=== PATIENT | male | born 1940 | race Caucasian/White ===

== ENCOUNTER → 2018-09-03 | Outpatient (CLI) | payer MEDICARE, OTHER ==
[~2018-09-03] MED LIST: ASPI325 PO; BENAML10/5 PO; CARV6.25 PO; CLOP75 PO; HYDACE5 PO; LISHYD1012 PO; LISHYD2025 PO; LORA1 PO; MULVITMIND PO; OLME20 PO
== END | disposition home or self-care (01) ==
LOC: LAB SHORT 11:35 → PLD 11:35
DX: C44.519 Basal cell carcinoma of skin of other part of trunk (principal)
CPT/HCPCS: 88305

== ENCOUNTER 2019-03-19 07:38 | Day surgery (SDC) | payer MEDICARE, OTHER ==
[~2019-03-19] VITALS: Ht 170.2 cm; Wt 84.3 kg
[~2019-03-19 07:38] MED LIST changes: +ACET500; +ATOR10; +Azor 10-40 MG1 EACH; +Cardura8 MG; +DIPATRL; +DULO60; +RIZATRIPTAN10 MG
--- NOTE | 2019-03-19 10:07 | NUR ---
03/19/19 1007 Stephanie Lucero (Jeanne 2ML SPOT INK USED FOR COLON POLYP AT 70CM.
== END 2019-03-19 10:40 | disposition home or self-care (01) ==
LOC: ORSCSDS 07:38
PROVIDERS: Surgery
PROC: 0DBL8ZX Excision of Transverse Colon, Via Natural or Artificial Opening Endoscopic, Diagnostic (ICD-10-PCS; principal; 2019-03-19 09:00)
PROC: 0DBM8ZX Excision of Descending Colon, Via Natural or Artificial Opening Endoscopic, Diagnostic (ICD-10-PCS; principal; 2019-03-19 09:00)
PROC: 0DBK8ZX Excision of Ascending Colon, Via Natural or Artificial Opening Endoscopic, Diagnostic (ICD-10-PCS; principal; 2019-03-19 09:00)
PROC: 3E0H8GC Introduction of Other Therapeutic Substance into Lower GI, Via Natural or Artificial Opening Endoscopic (ICD-10-PCS; principal; 2019-03-19 09:00)
DX: Z12.11 Encounter for screening for malignant neoplasm of colon (principal); D12.4 Benign neoplasm of descending colon; D12.2 Benign neoplasm of ascending colon; D12.3 Benign neoplasm of transverse colon; K57.30 Diverticulosis of large intestine without perforation or abscess without bleeding; I10 Essential (primary) hypertension; G47.33 Obstructive sleep apnea (adult) (pediatric); I25.2 Old myocardial infarction; Z79.899 Other long term (current) drug therapy
CPT/HCPCS: 88305; J0461; J1980; J2405; J2704; J7120

== ENCOUNTER → 2019-08-11 | Outpatient (CLI) | payer MEDICARE, OTHER | END | disposition home or self-care (01) | LOC: PLD 11:57 → LAB SHORT 11:57 | DX: D48.5 Neoplasm of uncertain behavior of skin (principal) | CPT/HCPCS: 88305 ==

== ENCOUNTER → 2020-08-16 | Outpatient (CLI) | payer MEDICARE, OTHER | END | disposition home or self-care (01) | LOC: PLD 08:54 → LAB SHORT 08:54 | DX: D48.5 Neoplasm of uncertain behavior of skin (principal) | CPT/HCPCS: 88305 ==

== ENCOUNTER → 2020-11-16 | Outpatient (CLI) | payer OTHER | LOC: LAB SHORT 11:18 → PLD 11:18 | DX: L98.0 Pyogenic granuloma (principal) | CPT/HCPCS: 88305 ==

== ENCOUNTER 2022-01-05 14:17 | Emergency (ER) | payer OTHER ==
[~2022-01-05] VITALS: Ht 167.6 cm; Wt 81.7 kg
[~2022-01-05 14:17] MED LIST changes: -DIPATRL; +LOMOTIL 2.5-0.1 EACH PO
[2022-01-09] MEDS ORDERED: OXYC5 PO (02:06)
[2022-01-09] MEDS ORDERED: DOCU100 PO (02:08)
[2022-01-09] MEDS ORDERED: ALERTNESS AID200 MG PO (02:10)
== END 2022-01-05 17:33 | disposition home or self-care (01) ==
LOC: ER 14:17
DX: T84.020A Dislocation of internal right hip prosthesis, initial encounter (principal); I10 Essential (primary) hypertension
CPT/HCPCS: 27266; 73501; 73502; 93971; 96374-59; 96375-59; 99284-25; J1170; J2405; J2704; J7030

== ENCOUNTER → 2022-09-03 | Outpatient (CLI) | payer OTHER ==
[~2022-09-03] MED LIST changes: +ALERTNESS AID200 MG PO; +DOCU100 PO; +OXYC5 PO
[2022-09-03 12:46] LABS: BASOPHILS ABSOLUTE AUTO 0.05 K/mm3 (0.00-0.23); BASOPHILS PERCENT AUTO 1 % (0-2); EOSINOPHILS ABSOLUTE AUTO 0.28 K/mm3 (0.00-0.68); EOSINOPHILS PERCENT AUTO 4 % (0-6); IMMATURE GRAN ABSOLUTE AUTO 0.01 K/mm3 (0.00-0.10); IMMATURE GRAN PERCENT AUTO 0 % (0-1); LYMPHOCYTES ABSOLUTE AUTO 1.94 K/mm3 (0.84-5.20); LYMPHOCYTES PERCENT AUTO 28 % (21-46); MONOCYTES PERCENT AUTO 10 % (4-13); Mean Corpuscular HGB 30.7 pg (26.0-34.0); Mean Corpuscular HGB Conc 33.3 g/dL (31.5-36.5); Mean Corpuscular Volume 92 fL (80-100); Mean Platelet Volume 9.7 fL (9.1-12.4); NEUTROPHILS ABSOLUTE AUTO 3.94 K/mm3 (1.96-9.15); NEUTROPHILS PERCENT AUTO 57 % (41-73); Platelet Count 235 K/mm3 (150-400); RDW Coefficient Variation 13.4 % (11.7-14.2); RDW Standard Deviation 45.3 fL (35.1-46.3); Red Blood Cell Count 4.56 M/mm3 (4.30-5.90); White Blood Cell Count 6.92 K/mm3 (4.00-11.30)
[2022-09-03 12:55] LABS: International Normalized Ratio 1.04; Prothrombin Time Results 10.9 Sec (9.7-11.5)
[2022-09-03 14:14] LABS: Albumin, Blood 3.8 g/dL (3.4-5.0); Albumin/Globulin Ratio 1.2 (0.8-1.8); Bilirubin, Total 0.6 mg/dL (0.1-1.0); Bun/Creatinine Ratio 20.6 (12.0-20.0); Calcium, Blood 9.1 mg/dL (8.5-10.1); Creatinine, Blood 0.78 mg/dL (0.60-1.20); D-Dimer, Quantitative 1.86 mg/L FEU (0.00-0.52); Globulin, Blood 3.3 g/dL (2.2-4.0); Potassium, Blood 4.1 mmol/L (3.5-5.5); Total Protein, Blood 7.1 g/dL (6.4-8.2)
== END | disposition home or self-care (01) ==
LOC: LAB 10:09 → LAB SHORT 10:09
PROVIDERS: Nurse Practitioner Family
DX: M79.605 Pain in left leg (principal); L08.9 Local infection of the skin and subcutaneous tissue, unspecified
CPT/HCPCS: 80053; 85025; 85379; 85610; 85730; 87070; 87077; 87186; 87205

== ENCOUNTER 2024-06-24 08:30 | Day surgery (SDC) | payer OTHER ==
[~2024-06-24] VITALS: Ht 167.6 cm; Wt 78.3 kg
[~2024-06-24 08:30] MED LIST changes: +LATA.005SO BOTHEYES; +Lactated Ringer's 1,000 ML IV ONE; +Lidocaine 1%-Epineph 1:100000 20 ML MDV ONE; +MULTIPLE VITAM1 EACH PO; +NARA2.5; +Oxybutynin Chlo10 MG PO; +PRED FORTE5 ML RIGHTEYE; +TIMO.5OPSO BOTHEYES; +TRAZ50 PO
[2024-06-24] MEDS ORDERED: Lactated Ringer's 1,000 ML IV ONE (09:00)
[2024-06-24] MEDS ORDERED: Midazolam HCl 1MG / ML 2ML Vial ONE (09:04)
[2024-06-24] MEDS ORDERED: propofoL 0 ML IV ONE (09:32)
--- NOTE | 2024-06-24 09:52 | NUR ---
06/24/24 0952 Alicia Sanz TIME OUT TAKEN AT 0944 TO VERIFY CORRECT PT, PROCEDURE, ALLERGIES AND LOCATION. PT ELECTED TO PROCEED WITH BLOCK PRIOR TO PROCEDURE. PT TOLERATED WELL, END AT 0948.
[2024-06-24] MEDS ORDERED: Esmolol HCL 10 MG/ML 10ML VIAL ONE (09:54)
[2024-06-24 10:48] VITALS: BP 166/84
== END 2024-06-24 11:20 | disposition home or self-care (01) ==
LOC: ORSCSDS 08:30
PROVIDERS: Orthopaedic Surgery
PROC: 01N54ZZ Release Median Nerve, Percutaneous Endoscopic Approach (ICD-10-PCS; principal; 2024-06-24 09:30)
DX: G56.03 Carpal tunnel syndrome, bilateral upper limbs (principal); I10 Essential (primary) hypertension; I25.10 Atherosclerotic heart disease of native coronary artery without angina pectoris; G47.33 Obstructive sleep apnea (adult) (pediatric); I25.2 Old myocardial infarction; Z86.73 Personal history of transient ischemic attack (TIA), and cerebral infarction without residual deficits; Z79.82 Long term (current) use of aspirin; Z79.899 Other long term (current) drug therapy; M54.2 Cervicalgia; R51.9 Headache, unspecified; R42 Dizziness and giddiness; Z88.8 Allergy status to other drugs, medicaments and biological substances
CPT/HCPCS: 70450; 72125; 99283-25; J2250; J2704; J7120

== ENCOUNTER → 2024-10-12 | Outpatient (CLI) | payer OTHER ==
[~2024-10-12] MED LIST changes: -Lactated Ringer's 1,000 ML IV ONE; -Lidocaine 1%-Epineph 1:100000 20 ML MDV ONE
== END | disposition home or self-care (01) ==
LOC: LAB SHORT 18:22 → LAB 18:22
DX: R10.9 Unspecified abdominal pain (principal); R19.7 Diarrhea, unspecified; K59.00 Constipation, unspecified
CPT/HCPCS: 87015; 87045; 87046; 87205; 87899

== ENCOUNTER 2024-11-26 02:09 | Day surgery (SDC) | payer OTHER ==
[2024-11-26] MEDS ORDERED: Lidocaine HCl 4% Cream 5 GM ONE (13:51)
== END 2024-11-26 23:00 | disposition home or self-care (01) ==
LOC: WOUND 02:09
DX: E11.621 Type 2 diabetes mellitus with foot ulcer (principal); L97.412 Non-pressure chronic ulcer of right heel and midfoot with fat layer exposed; I87.2 Venous insufficiency (chronic) (peripheral); E11.51 Type 2 diabetes mellitus with diabetic peripheral angiopathy without gangrene; G47.30 Sleep apnea, unspecified; I10 Essential (primary) hypertension
CPT/HCPCS: A6213; A9270; G0463

== ENCOUNTER → 2024-12-03 | Day surgery (SDC) | payer OTHER ==
[~2024-12-03] MED LIST changes: +Lidocaine HCl 4% Cream 5 GM ONE
== END ==
LOC: WOUND 05:00
DX: E11.621 Type 2 diabetes mellitus with foot ulcer (principal); L97.512 Non-pressure chronic ulcer of other part of right foot with fat layer exposed
CPT/HCPCS: A6213; A9270

== ENCOUNTER 2024-12-10 01:37 | Day surgery (SDC) | payer OTHER ==
[~2024-12-10 01:37] MED LIST changes: -Lidocaine HCl 4% Cream 5 GM ONE
[2024-12-10] MEDS ORDERED: Lidocaine HCl 4% Cream 5 GM ONE (11:12)
== END 2024-12-10 23:00 | disposition home or self-care (01) ==
LOC: WOUND 01:37
DX: E11.621 Type 2 diabetes mellitus with foot ulcer (principal); L97.512 Non-pressure chronic ulcer of other part of right foot with fat layer exposed
CPT/HCPCS: A6213; A9270

== ENCOUNTER 2024-12-17 04:11 | Day surgery (SDC) | payer OTHER ==
[2024-12-17] MEDS ORDERED: Lidocaine HCl 4% Cream 5 GM ONE (11:00)
== END 2024-12-17 23:00 | disposition home or self-care (01) ==
LOC: WOUND 04:11
DX: E11.622 Type 2 diabetes mellitus with other skin ulcer (principal); L97.812 Non-pressure chronic ulcer of other part of right lower leg with fat layer exposed
CPT/HCPCS: A6213; A9270

== ENCOUNTER 2024-12-31 02:29 | Day surgery (SDC) | payer OTHER ==
[2024-12-31] MEDS ORDERED: Lidocaine HCl 4% Cream 5 GM ONE (10:59)
== END 2024-12-31 23:00 | disposition home or self-care (01) ==
LOC: WOUND 02:29
DX: E11.621 Type 2 diabetes mellitus with foot ulcer (principal); L97.512 Non-pressure chronic ulcer of other part of right foot with fat layer exposed; I87.2 Venous insufficiency (chronic) (peripheral)
CPT/HCPCS: A6213; A9270

== ENCOUNTER 2025-01-07 00:55 | Day surgery (SDC) | payer OTHER ==
[2025-01-07] MEDS ORDERED: Lidocaine HCl 4% Cream 5 GM ONE (11:06)
== END 2025-01-07 23:00 | disposition home or self-care (01) ==
LOC: WOUND 00:55
DX: E11.622 Type 2 diabetes mellitus with other skin ulcer (principal); L97.812 Non-pressure chronic ulcer of other part of right lower leg with fat layer exposed
CPT/HCPCS: A6213; A9270

== ENCOUNTER 2025-01-14 02:18 | Day surgery (SDC) | payer OTHER ==
[2025-01-14] MEDS ORDERED: Lidocaine HCl 4% Cream 5 GM ONE (10:56)
== END 2025-01-14 23:00 | disposition home or self-care (01) ==
LOC: WOUND 02:18
DX: E11.622 Type 2 diabetes mellitus with other skin ulcer (principal); L97.812 Non-pressure chronic ulcer of other part of right lower leg with fat layer exposed
CPT/HCPCS: A6213; A9270

== ENCOUNTER 2025-01-21 04:06 | Day surgery (SDC) | payer OTHER ==
[2025-01-21] MEDS ORDERED: Lidocaine HCl 4% Cream 5 GM ONE (10:49)
== END 2025-01-21 23:00 | disposition home or self-care (01) ==
LOC: WOUND 04:06
DX: E11.621 Type 2 diabetes mellitus with foot ulcer (principal); L97.512 Non-pressure chronic ulcer of other part of right foot with fat layer exposed
CPT/HCPCS: A6213; A9270

== ENCOUNTER 2025-01-28 00:54 | Day surgery (SDC) | payer OTHER ==
[2025-01-28] MEDS ORDERED: Lidocaine HCl 4% Cream 5 GM ONE (11:02)
== END 2025-01-28 23:00 | disposition home or self-care (01) ==
LOC: WOUND 00:54
DX: L97.412 Non-pressure chronic ulcer of right heel and midfoot with fat layer exposed (principal)
CPT/HCPCS: A6213; A9270

== ENCOUNTER 2025-02-04 02:09 | Day surgery (SDC) | payer OTHER ==
[2025-02-04] MEDS ORDERED: Lidocaine HCl 4% Cream 5 GM ONE (11:33)
== END 2025-02-04 23:00 | disposition home or self-care (01) ==
LOC: WOUND 02:09
DX: E11.621 Type 2 diabetes mellitus with foot ulcer (principal); L97.412 Non-pressure chronic ulcer of right heel and midfoot with fat layer exposed; E11.622 Type 2 diabetes mellitus with other skin ulcer; L97.812 Non-pressure chronic ulcer of other part of right lower leg with fat layer exposed
CPT/HCPCS: A6213; A9270

== ENCOUNTER 2025-02-18 04:19 | Day surgery (SDC) | payer OTHER ==
[2025-02-18] MEDS ORDERED: Lidocaine HCl 4% Cream 5 GM ONE (15:31)
== END 2025-02-18 23:00 | disposition home or self-care (01) ==
LOC: WOUND 04:19
DX: E11.621 Type 2 diabetes mellitus with foot ulcer (principal); L97.412 Non-pressure chronic ulcer of right heel and midfoot with fat layer exposed
CPT/HCPCS: A9270; G0463

== ENCOUNTER 2025-02-25 01:58 | Day surgery (SDC) | payer OTHER ==
[2025-02-25] MEDS ORDERED: Lidocaine HCl 4% Cream 5 GM ONE (11:18)
== END 2025-02-25 23:00 | disposition home or self-care (01) ==
LOC: WOUND 01:58
DX: L97.512 Non-pressure chronic ulcer of other part of right foot with fat layer exposed (principal); E11.622 Type 2 diabetes mellitus with other skin ulcer
CPT/HCPCS: A9270; G0463

== ENCOUNTER 2025-03-04 02:31 | Day surgery (SDC) | payer OTHER ==
[2025-03-04] MEDS ORDERED: Lidocaine HCl 4% Cream 5 GM ONE (11:07)
== END 2025-03-04 23:00 | disposition home or self-care (01) ==
LOC: WOUND 02:31
DX: L97.512 Non-pressure chronic ulcer of other part of right foot with fat layer exposed (principal)
CPT/HCPCS: A9270; G0463

== ENCOUNTER 2025-03-19 05:06 | Day surgery (SDC) | payer OTHER | END 2025-03-19 23:00 | disposition home or self-care (01) | LOC: WOUND 05:06 | DX: E11.622 Type 2 diabetes mellitus with other skin ulcer (principal); L97.412 Non-pressure chronic ulcer of right heel and midfoot with fat layer exposed | CPT/HCPCS: G0463 ==

== ENCOUNTER 2025-04-01 01:42 | Day surgery (SDC) | payer OTHER ==
[2025-04-01] MEDS ORDERED: Lidocaine HCl 4% Cream 5 GM ONE (11:03)
== END 2025-04-01 23:00 | disposition home or self-care (01) ==
LOC: WOUND 01:42
DX: L97.512 Non-pressure chronic ulcer of other part of right foot with fat layer exposed (principal); L97.412 Non-pressure chronic ulcer of right heel and midfoot with fat layer exposed
CPT/HCPCS: A9270

== ENCOUNTER 2025-04-22 00:47 | Day surgery (SDC) | payer OTHER ==
[2025-04-22] MEDS ORDERED: Lidocaine HCl 4% Cream 5 GM ONE (11:16)
== END 2025-04-22 23:00 | disposition home or self-care (01) ==
LOC: WOUND 00:47
DX: L97.412 Non-pressure chronic ulcer of right heel and midfoot with fat layer exposed (principal); L97.512 Non-pressure chronic ulcer of other part of right foot with fat layer exposed; E11.51 Type 2 diabetes mellitus with diabetic peripheral angiopathy without gangrene; I87.2 Venous insufficiency (chronic) (peripheral)
CPT/HCPCS: A6213; A9270

== ENCOUNTER 2025-05-27 10:56 | Day surgery (SDC) | payer OTHER | END 2025-05-27 23:00 | disposition home or self-care (01) | LOC: WOUND 10:56 | DX: E11.622 Type 2 diabetes mellitus with other skin ulcer (principal); L97.412 Non-pressure chronic ulcer of right heel and midfoot with fat layer exposed; E11.51 Type 2 diabetes mellitus with diabetic peripheral angiopathy without gangrene; I87.2 Venous insufficiency (chronic) (peripheral) | CPT/HCPCS: A6213 ==

== ENCOUNTER 2025-06-17 01:49 | Day surgery (SDC) | payer OTHER ==
[2025-06-17] MEDS ORDERED: Lidocaine HCl 4% Cream 5 GM ONE (11:09)
[2025-06-18] MEDS ORDERED: LOSA25 PO (21:01)
== END 2025-06-17 23:00 | disposition home or self-care (01) ==
LOC: WOUND 01:49
DX: E11.621 Type 2 diabetes mellitus with foot ulcer (principal); L97.512 Non-pressure chronic ulcer of other part of right foot with fat layer exposed; L97.412 Non-pressure chronic ulcer of right heel and midfoot with fat layer exposed; E11.51 Type 2 diabetes mellitus with diabetic peripheral angiopathy without gangrene; I87.2 Venous insufficiency (chronic) (peripheral)
CPT/HCPCS: A9270

== ENCOUNTER 2025-06-18 11:46 | Inpatient (IN) | payer OTHER ==
[~2025-06-18] VITALS: Ht 172.7 cm; Wt 84.3 kg
[~2025-06-18 11:46] MED LIST changes: -ATOR10; +ATOR10 PO; -DULO60; +DULO60 PO
[2025-06-18] MEDS ORDERED: NS 500 ML IV SCH ×2 (12:25→14:00)
[2025-06-18 12:40] LABS: BASOPHILS ABSOLUTE AUTO 0.05 K/mm3 (0.00-0.23); BASOPHILS PERCENT AUTO 0 % (0-2); EOSINOPHILS ABSOLUTE AUTO 0.21 K/mm3 (0.00-0.68); EOSINOPHILS PERCENT AUTO 2 % (0-6); Hematocrit 40.6 % (37.0-53.0); Hemoglobin 13.7 g/dL (13.5-17.5); IMMATURE GRAN ABSOLUTE AUTO 0.05 K/mm3 (0.00-0.10); IMMATURE GRAN PERCENT AUTO 0 % (0-1); LYMPHOCYTES ABSOLUTE AUTO 0.66 K/mm3 (0.84-5.20); LYMPHOCYTES PERCENT AUTO 5 % (21-46); MONOCYTES ABSOLUTE AUTO 0.63 K/mm3 (0.16-1.47); MONOCYTES PERCENT AUTO 5 % (4-13); Mean Corpuscular HGB Conc 33.7 g/dL (31.5-36.5); Mean Corpuscular Volume 96 fL (80-100); NEUTROPHILS ABSOLUTE AUTO 11.32 K/mm3 (1.96-9.15); NEUTROPHILS PERCENT AUTO 88 % (41-73); NRBC ABSOLUTE 0.00 K/mm3 (0.00-0.02); NRBC Auto 0.0 /100 WBC (0.0-0.2); Platelet Count 208 K/mm3 (150-400); RDW Coefficient Variation 13.0 % (11.7-14.2); RDW Standard Deviation 46.2 fL (35.1-46.3)
[2025-06-18 12:51] LABS: C-REACTIVE PROTEIN, EXT RANGE 1.61 mg/dL (0.000-0.300); Magnesium, Blood 1.9 mg/dL (1.6-2.4)
[2025-06-18 12:53] LABS: Alanine Aminotransfer (ALT/SGP 34.0 U/L (12-78); Albumin, Blood 3.7 g/dL (3.4-5.0); Albumin/Globulin Ratio 1.0 (0.8-1.8); Anion Gap 6.0 mmol/L (3-11); Aspartate Aminotrans (AST/SGOT 25.0 U/L (12-37); Bilirubin, Total 1.3 mg/dL (0.1-1.0); Blood Urea Nitrogen 21.0 mg/dL (8-24); CO2, Blood 33.0 mmol/L (21-32); Calcium, Blood 8.9 mg/dL (8.5-10.1); Chloride, Blood 102.0 mmol/L (98-108); Creatinine, Blood 0.77 mg/dL (0.60-1.20); Globulin, Blood 3.6 g/dL (2.2-4.0); Glucose, Blood 107.0 mg/dL (70-99); Potassium, Blood 3.5 mmol/L (3.5-5.5); Sodium, Blood 137.0 mmol/L (136-145); Total Protein, Blood 7.3 g/dL (6.4-8.2)
[2025-06-18 13:56] LABS: Influenza A, PCR NEGATIVE (NEGATIVE); Influenza B, PCR NEGATIVE (NEGATIVE); Resp Syncytial Virus, PCR NEGATIVE (NEGATIVE); SARS-Cov-2 (COVID-19) PCR, MMC NEGATIVE (NEGATIVE)
[2025-06-18] MEDS ORDERED: CeFAZolin Sodium 1,000 MG in NS 50 ML IV ONE (14:00)
[2025-06-18 14:28] LABS: Source, Urine Clean Catch
[2025-06-18 14:38] LABS: Bilirubin, Urine Neg (Neg); Color, Urine Yellow (P-Yellow); Glucose Qualitative, Urine Neg (Neg); Ketones, Urine Neg (Neg); Leukocyte Esterase, Urine Neg (Neg); Protein, Urine 2+ (Neg); Specific Gravity, Urine 1.010 (1.003-1.022); Urobilinogen, Urine NORM (Normal)
[2025-06-18 14:49] LABS: White Blood Cells, Urine 0-2 /hpf (0-5)
[2025-06-18] MEDS ORDERED: Albuterol 2.5 MG/3 ML VIAL INH ONE (17:55)
[2025-06-18] MEDS ORDERED: CeFAZolin Sodium 2,000 MG in NS 100 ML IV SCH (18:00)
[2025-06-18 18:39] VITALS: BP 138/67
[2025-06-18 18:57] VITALS: BP 133/63
--- NOTE | 2025-06-18 19:57 | NUR ---
SHIFT SUMMARY/ADMIT NOTE- PT ARRIVED ON MEDICAL FLOOR AT 1845. QUICK ADMIT AND SCREENING WAS COMPLETED. PT CAN ANSWER SHORT QUESTIONS, BUT LOOSES TRACK OF THE CONVERSATION AND STARTS TALKING ABOUT A TOTALLY DIFFERENT SUBJECT, AFTER 3-5 WORDS. PER FAMILY HE IS NORMALLY "SHARP A TACK". FAMLY WENT HOME TO GET THE PT MEDICATION BOTTLES AND HIS CPAP. ORDER RECIEVED FOR HOME CPAP. THE FAMILY STATED THE PT DOES NOT HAVE ANY O2 AT HOME, HIS CPAP SETTING IS 8. SPOKE TO RT THEY ARE AWARE THE HOME CPAP IS ON ITS WAY HERE, NIGHT RN AWARE TO CALL RT WHEN THE FAMILY ARRIVES WITH THE CPAP. PT IN BED, DRESSING TO THE RLE IS C/D/I. NO PHOTOS TAKEN THE PT HAD THE DRESSING CHANGED THIS MORNING. PT IN BED, CALL LIGHT IN RECH FAMILY AT THE BEDSIDE. NO S&S OF DISTRESS NOTED. BEDSIDE REPORT COMPLETED WITH NIGHT RN. PT ON 3L O2 VIA NC, LAST VEWS SCORE WAS 4. NIGHT RN IS AWARE INCREASED FREQ OF VITALS TO Q2 X3.
[2025-06-18] MEDS ORDERED: NS 1,000 ML IV SCH (20:00)
[2025-06-18 20:14] VITALS: BP 130/69
[2025-06-18] MEDS ORDERED: Lactobacil 2-S.Thermo-Bifido 1 1 Cap PO SCH (21:00)
[2025-06-18] MEDS ORDERED: LOSA25 PO (21:01)
[2025-06-18 23:40] VITALS: BP 139/68
[2025-06-19] MEDS ORDERED: CeFAZolin Sodium 2,000 MG in NS 100 ML IV SCH
[2025-06-19 04:19] VITALS: BP 167/79
[2025-06-19 05:01] LABS: BASOPHILS ABSOLUTE AUTO 0.03 K/mm3 (0.00-0.23); BASOPHILS PERCENT AUTO 0 % (0-2); EOSINOPHILS ABSOLUTE AUTO 0.00 K/mm3 (0.00-0.68); EOSINOPHILS PERCENT AUTO 0 % (0-6); Hematocrit 36.9 % (37.0-53.0); Hemoglobin 12.3 g/dL (13.5-17.5); IMMATURE GRAN ABSOLUTE AUTO 0.06 K/mm3 (0.00-0.10); IMMATURE GRAN PERCENT AUTO 0 % (0-1); LYMPHOCYTES ABSOLUTE AUTO 0.50 K/mm3 (0.84-5.20); LYMPHOCYTES PERCENT AUTO 4 % (21-46); MONOCYTES ABSOLUTE AUTO 0.73 K/mm3 (0.16-1.47); MONOCYTES PERCENT AUTO 5 % (4-13); Mean Corpuscular HGB Conc 33.3 g/dL (31.5-36.5); Mean Corpuscular Volume 95 fL (80-100); NEUTROPHILS ABSOLUTE AUTO 12.62 K/mm3 (1.96-9.15); NEUTROPHILS PERCENT AUTO 91 % (41-73); NRBC ABSOLUTE 0.00 K/mm3 (0.00-0.02); NRBC Auto 0.0 /100 WBC (0.0-0.2); Platelet Count 161 K/mm3 (150-400); RDW Coefficient Variation 13.2 % (11.7-14.2); RDW Standard Deviation 45.4 fL (35.1-46.3)
[2025-06-19 05:31] LABS: Alanine Aminotransfer (ALT/SGP 32.0 U/L (12-78); Albumin, Blood 3.0 g/dL (3.4-5.0); Albumin/Globulin Ratio 0.8 (0.8-1.8); Anion Gap 6.0 mmol/L (3-11); Aspartate Aminotrans (AST/SGOT 27.0 U/L (12-37); Bilirubin, Total 1.5 mg/dL (0.1-1.0); Blood Urea Nitrogen 17.0 mg/dL (8-24); CO2, Blood 30.0 mmol/L (21-32); Calcium, Blood 8.2 mg/dL (8.5-10.1); Chloride, Blood 102.0 mmol/L (98-108); Creatinine, Blood 0.71 mg/dL (0.60-1.20); Globulin, Blood 3.6 g/dL (2.2-4.0); Glucose, Blood 105.0 mg/dL (70-99); Magnesium, Blood 2.0 mg/dL (1.6-2.4); Potassium, Blood 3.4 mmol/L (3.5-5.5); Sodium, Blood 135.0 mmol/L (136-145); Total Protein, Blood 6.6 g/dL (6.4-8.2)
--- NOTE | 2025-06-19 06:37 | NUR ---
SHIFT SUMMARY PT ALERT ORIENTED CAN ANSWER ORIENTED QUESTIONS AT TIMES AND OTHER TIMES IS VERY CONFUSED. HES BEEN INC AND CONT OF URINE THIS SHIFT. WEARING BRIEFS. HES KEPT TURNED AND REPOSITIONED REMAINS ON ANCEF ORDERED FOR CELLULITIS TO RLE WOUNDS. 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 REMAINS ON 3L VIA NC DURING DAY AND CPAP AT NIGHT WITH 3L BLEED IN. HIS GRANDDAUGHTER STAYED THE NIGHT IN ROOM WITH HIM. REMAINS ON NS AT 100 X 1 BAG. HES TAKING WATER WITH ASSIST. REMAINS ON TELEMETRY AT NSR AT 72. RESTING IN BED AT THIS TIME WITH CALL LIGHT IN REACH.
[2025-06-19 07:37] VITALS: BP 161/71
[2025-06-19] MEDS ORDERED: NS 250 ML IV PRN (08:15)
[2025-06-19] MEDS ORDERED: Enoxaparin 40 MG/0.4 ML SYR SC SCH (09:00)
[2025-06-19] MEDS ORDERED: DULoxetine HCL 60 MG Capsule DR PO SCH (09:00)
[2025-06-19] MEDS ORDERED: Timolol 0.5% Opth Soln 5 ML BOTHEYES SCH (09:00)
[2025-06-19 12:30] VITALS: BP 144/76
--- NOTE | 2025-06-19 17:45 | NUR ---
SHIFT SUMMARY: PATIENT ALERT AND ORIENTED c CONFUSION, BUT EASILY REDIRECTABLE. PATIENT DENIES CP/PRESSURE, SOB, N/V AND DIZZINESS. PATIENT ON TELE, SR HR IN THE 70'S-90'S BPM c OCCASIONAL PAC/BBB. PATIENT ON RA SATTING 89-95%, USES CPAP c 3L BLEED IN AT HS. DRESSING CHANGED TO R LEG. PATIENT WAS SEEN BY PT FOR EVAL TODAY, RECOMMENDING [facility]. PATIENT RESTING IN BED ON/OFF c FAMILY AT BEDSIDE T/O SHIFT. PATIENT RECEIVED SCHEDULED MEDS PER EMAR. VITAL SIGNS REVIEWED. CALL LIGHT IN REACH.
[2025-06-19 18:09] VITALS: BP 159/77
[2025-06-19 20:23] VITALS: BP 147/80
[2025-06-19] MEDS ORDERED: Latanoprost 0.005% Opth Soln 2.5 ML BOTHEYES SCH (21:00)
[2025-06-19 23:39] VITALS: BP 142/74
[2025-06-20 04:18] VITALS: BP 160/85
[2025-06-20 04:53] LABS: BASOPHILS ABSOLUTE AUTO 0.04 K/mm3 (0.00-0.23); BASOPHILS PERCENT AUTO 0 % (0-2); EOSINOPHILS ABSOLUTE AUTO 0.02 K/mm3 (0.00-0.68); EOSINOPHILS PERCENT AUTO 0 % (0-6); Hematocrit 34.9 % (37.0-53.0); Hemoglobin 11.7 g/dL (13.5-17.5); IMMATURE GRAN ABSOLUTE AUTO 0.08 K/mm3 (0.00-0.10); IMMATURE GRAN PERCENT AUTO 1 % (0-1); LYMPHOCYTES ABSOLUTE AUTO 1.14 K/mm3 (0.84-5.20); LYMPHOCYTES PERCENT AUTO 10 % (21-46); MONOCYTES ABSOLUTE AUTO 1.10 K/mm3 (0.16-1.47); MONOCYTES PERCENT AUTO 10 % (4-13); Mean Corpuscular HGB Conc 33.5 g/dL (31.5-36.5); Mean Corpuscular Volume 94 fL (80-100); NEUTROPHILS ABSOLUTE AUTO 8.80 K/mm3 (1.96-9.15); NEUTROPHILS PERCENT AUTO 79 % (41-73); NRBC ABSOLUTE 0.00 K/mm3 (0.00-0.02); NRBC Auto 0.0 /100 WBC (0.0-0.2); Platelet Count 133 K/mm3 (150-400); RDW Coefficient Variation 12.9 % (11.7-14.2); RDW Standard Deviation 44.5 fL (35.1-46.3)
[2025-06-20 05:13] LABS: Alanine Aminotransfer (ALT/SGP 23.0 U/L (12-78); Albumin, Blood 2.6 g/dL (3.4-5.0); Albumin/Globulin Ratio 0.7 (0.8-1.8); Anion Gap 7.0 mmol/L (3-11); Aspartate Aminotrans (AST/SGOT 22.0 U/L (12-37); Bilirubin, Total 1.3 mg/dL (0.1-1.0); Blood Urea Nitrogen 16.0 mg/dL (8-24); CO2, Blood 29.0 mmol/L (21-32); Calcium, Blood 8.1 mg/dL (8.5-10.1); Chloride, Blood 100.0 mmol/L (98-108); Creatinine, Blood 0.73 mg/dL (0.60-1.20); Globulin, Blood 3.5 g/dL (2.2-4.0); Glucose, Blood 113.0 mg/dL (70-99); Potassium, Blood 3.2 mmol/L (3.5-5.5); Sodium, Blood 133.0 mmol/L (136-145); Total Protein, Blood 6.1 g/dL (6.4-8.2)
--- NOTE | 2025-06-20 07:31 | NUR ---
Shift Summary AO to self, hospital, and family. Linen changed performed at the beginning of shift, required 3 person assist d/t inability to lay flat and fear of falling. Purewick in place after patient was shaved. Patient does not like to be turned too often. States he is already as comfortable as he can get. Education provided on the need to offload to prevent pressure sores. Will reinforce teaching. Patient also refused timolol at night time, states he takes it when he eats breakfast in the morning. Patient did not wear CPAP most of the night, oxygen saturation was maintained above 90% on RA. DRAWER IN JACQUARD LOOM attached.
[2025-06-20 07:34] VITALS: BP 160/71
--- NOTE | 2025-06-20 07:39 | NUR ---
AM SHIFT NOTIFICATION NOTE: NOTIFIED DR. CALVILLO AT 0740, PATIENT AM POTASSIUM LAB RESULT AND HYPERTENSIVE. PER DR. CALVILLO SHE WILL PLACE AN ORDER IN.
[2025-06-20] MEDS ORDERED: Lidocaine 4% 1 Patch TOP ONE (11:30)
[2025-06-20 12:00] VITALS: BP 158/88
[2025-06-20 16:07] VITALS: BP 154/79
--- NOTE | 2025-06-20 17:52 | NUR ---
SHIFT SUMMARY: PATIENT A/OX3, STILL CONFUSED TO MONTH AND DAY, BUT OVERALL MENTATION HAS IMPROVED THIS SHIFT. PATIENT HAS HAD NO NEW CHANGES ON TELE, SR HR 70-80'S BPM c OCCASIONAL BBB/PAC. PATIENT DENIES CP/PRESSURE, SOB, N/V AND DIZZINESS. PATIENT R LEG c MINIMAL SEROSANGUINEOUS DRAINAGE, DRESSING CHANGED TO AFFECTED SITE. PATIENT MEDICATED FOR R SHOULDER/ARM PAIN PER EMAR c MOD EFFECT. PATIENT RECEIVED SCHEDULED MEDS PER EMAR. VITAL SIGNS REVIEWED. PATIENT RESTING IN BED ON/OFF c FAMILY'S AT BEDSIDE T/O SHIFT. CALL LIGHT IN REACH.
--- NOTE | 2025-06-20 20:01 | NUR ---
Assumed Care Patient has a large family visiting daily therefore patient has been moved from room 363 to 364 (a larger room) to accomodate family. All belongings sent to new room. PV DESIGN AND INSTALLATION TECHNICIAN and myself did a visual sweep to ensure no possession was left behind. Also advised granddaughter to scan room for personal belongings which she did. organizational development specialist and Unit Sec already aware.
[2025-06-20 21:17] VITALS: BP 150/87
[2025-06-21] VITALS (7 sets, daily range): BP systolic 119–173; BP diastolic 65–91
[2025-06-21 05:08] LABS: BASOPHILS ABSOLUTE AUTO 0.03 K/mm3 (0.00-0.23); BASOPHILS PERCENT AUTO 0 % (0-2); EOSINOPHILS ABSOLUTE AUTO 0.11 K/mm3 (0.00-0.68); EOSINOPHILS PERCENT AUTO 1 % (0-6); Hematocrit 38.3 % (37.0-53.0); Hemoglobin 12.7 g/dL (13.5-17.5); IMMATURE GRAN ABSOLUTE AUTO 0.06 K/mm3 (0.00-0.10); IMMATURE GRAN PERCENT AUTO 1 % (0-1); LYMPHOCYTES ABSOLUTE AUTO 1.22 K/mm3 (0.84-5.20); LYMPHOCYTES PERCENT AUTO 11 % (21-46); MONOCYTES ABSOLUTE AUTO 1.08 K/mm3 (0.16-1.47); MONOCYTES PERCENT AUTO 10 % (4-13); Mean Corpuscular HGB Conc 33.2 g/dL (31.5-36.5); Mean Corpuscular Volume 95 fL (80-100); NEUTROPHILS ABSOLUTE AUTO 8.70 K/mm3 (1.96-9.15); NEUTROPHILS PERCENT AUTO 78 % (41-73); NRBC ABSOLUTE 0.00 K/mm3 (0.00-0.02); NRBC Auto 0.0 /100 WBC (0.0-0.2); Platelet Count 143 K/mm3 (150-400); RDW Coefficient Variation 12.9 % (11.7-14.2); RDW Standard Deviation 44.8 fL (35.1-46.3)
[2025-06-21 05:31] LABS: Alanine Aminotransfer (ALT/SGP 25.0 U/L (12-78); Albumin, Blood 2.6 g/dL (3.4-5.0); Albumin/Globulin Ratio 0.6 (0.8-1.8); Anion Gap 6.0 mmol/L (3-11); Aspartate Aminotrans (AST/SGOT 27.0 U/L (12-37); Bilirubin, Total 1.3 mg/dL (0.1-1.0); Blood Urea Nitrogen 11.0 mg/dL (8-24); CO2, Blood 31.0 mmol/L (21-32); Calcium, Blood 8.1 mg/dL (8.5-10.1); Chloride, Blood 103.0 mmol/L (98-108); Creatinine, Blood 0.55 mg/dL (0.60-1.20); Globulin, Blood 4.0 g/dL (2.2-4.0); Glucose, Blood 96.0 mg/dL (70-99); Potassium, Blood 3.5 mmol/L (3.5-5.5); Sodium, Blood 136.0 mmol/L (136-145); Total Protein, Blood 6.6 g/dL (6.4-8.2)
--- NOTE | 2025-06-21 06:16 | NUR ---
Physician Contact: Hypertension Dr. Tony Walls contacted regarding hypertension with increasing blood pressure tonight. Patient was placed on a new anti-hypertensive med to start today (Norvasc 10mg PO Daily) and he also has scheduled Losartan 100mg PO Daily. Ordered to give patient those two doses early (now). [facility] pharmacist Tommy. He will be tubing meds once orders have been entered.
--- NOTE | 2025-06-21 07:48 | NUR ---
Shift Summary AOx3. Slept on and off. Granddaughter at the bedside. Medicated for right shoulder pain x1 with good effect. MOTION PICTURE DIRECTOR d/c'd. See previous note RE hypertension. Unfortunately, did not get the meds tubed over so could not give it. On a good note, VS checked and hypertension has improved from what it was when Dr. Chen was notified. BP meds were not given early for this reason.
[2025-06-21] MEDS ORDERED: Ondansetron HCl 2 MG / ML 2ML Vial IV PRN (08:50)
--- NOTE | 2025-06-21 19:21 | NUR ---
SHIFT SUMMARY: PT A&O X4 T/O SHIFT. PER DR. DUENAS, THIS RN CALLED WOUND CLINIC AND OBTAINED PROPER ORDERS FOR RLE VENOUS STASIS WOUND. WOUND CHANGE COMPLETED THIS SHIFT AROUND 1800 W/O COMPLICATIONS. PT ONE PERSON ASSIST c FWW AND GB. PUREWICK IN PLACE PT DOES NOT GET AROUND EASILY. WORKING WITH PT/OT RECOMMENDING HOME HEALTH. CONTINUING IV ABX Q8. CALL LIGHT IN REACH. BED IN LOWEST POSITION.
[2025-06-22 04:12] VITALS: BP 137/73
--- NOTE | 2025-06-22 05:03 | NUR ---
PT A&O X4, VS WNL, PT WORE CPAP ONLY A FEW HOURS THIS NIGHT. PT WITH PAIN IN RIGHT SHOULDER AND ARM, CHRONIC. WEARING MALE PURWIK WITH ADEQUATE OUTPUT. PT WOUNDS IN LE'S, DRESSING CHANGED ON DAY SHIFT. PLAN TO D/C HOME WITH FAMILY AND HH. FAMILY AT BS THROUGHOUT NIGHT.
[2025-06-22 05:34] LABS: BASOPHILS ABSOLUTE AUTO 0.02 K/mm3 (0.00-0.23); BASOPHILS PERCENT AUTO 0 % (0-2); EOSINOPHILS ABSOLUTE AUTO 0.23 K/mm3 (0.00-0.68); EOSINOPHILS PERCENT AUTO 3 % (0-6); Hematocrit 34.9 % (37.0-53.0); Hemoglobin 11.8 g/dL (13.5-17.5); IMMATURE GRAN ABSOLUTE AUTO 0.04 K/mm3 (0.00-0.10); IMMATURE GRAN PERCENT AUTO 1 % (0-1); LYMPHOCYTES ABSOLUTE AUTO 1.70 K/mm3 (0.84-5.20); LYMPHOCYTES PERCENT AUTO 21 % (21-46); MONOCYTES ABSOLUTE AUTO 1.04 K/mm3 (0.16-1.47); MONOCYTES PERCENT AUTO 13 % (4-13); Mean Corpuscular HGB Conc 33.8 g/dL (31.5-36.5); Mean Corpuscular Volume 93 fL (80-100); NEUTROPHILS ABSOLUTE AUTO 5.02 K/mm3 (1.96-9.15); NEUTROPHILS PERCENT AUTO 62 % (41-73); NRBC ABSOLUTE 0.00 K/mm3 (0.00-0.02); NRBC Auto 0.0 /100 WBC (0.0-0.2); Platelet Count 152 K/mm3 (150-400); RDW Coefficient Variation 12.9 % (11.7-14.2); RDW Standard Deviation 44.2 fL (35.1-46.3)
[2025-06-22 06:12] LABS: Alanine Aminotransfer (ALT/SGP 28.0 U/L (12-78); Albumin, Blood 2.4 g/dL (3.4-5.0); Albumin/Globulin Ratio 0.7 (0.8-1.8); Anion Gap 6.0 mmol/L (3-11); Aspartate Aminotrans (AST/SGOT 35.0 U/L (12-37); Bilirubin, Total 0.7 mg/dL (0.1-1.0); Blood Urea Nitrogen 17.0 mg/dL (8-24); CO2, Blood 30.0 mmol/L (21-32); Calcium, Blood 7.9 mg/dL (8.5-10.1); Chloride, Blood 103.0 mmol/L (98-108); Creatinine, Blood 0.75 mg/dL (0.60-1.20); Globulin, Blood 3.6 g/dL (2.2-4.0); Glucose, Blood 93.0 mg/dL (70-99); Potassium, Blood 3.3 mmol/L (3.5-5.5); Sodium, Blood 136.0 mmol/L (136-145); Total Protein, Blood 6.0 g/dL (6.4-8.2)
[2025-06-22 07:36] VITALS: BP 143/69
[2025-06-22] MEDS ORDERED: Timolol 0.5% Opth Soln 5 ML BOTHEYES SCH (09:00)
[2025-06-22] MEDS ORDERED: AMLO10 PO (10:46)
[2025-06-22] MEDS ORDERED: Lidocaine 4% 1 Patch TOP SCH ×2 (10:50)
[2025-06-22] MEDS ORDERED: Diclofenac Sodi50 MG PO (11:17)
[2025-06-22] MEDS ORDERED: HYDCHL25 PO (11:18)
[2025-06-22 15:58] VITALS: BP 139/69
[2025-06-22 19:44] VITALS: BP 145/69
--- NOTE | 2025-06-23 03:51 | NUR ---
SHIFT SUMMARY NO ACUTE EVENTS DURING THIS SHIFT. DAUGHTER BY THE BEDSIDE T/O THE NIGHT. SHOWER AT HS. NOTED NEW SMALL BLISTER IN THE MID BACK WITH SURROUNDING REDDENED AREAS. CHARGE NURSE NOTIFIED AND PIC IN THE CHART. RIGHT LE DRESSINGS C/D/I, CHANGED DURING PREVIOUS SHIFT. IV ABX INFUSED ORDERED.PT IS ON RA, CONTINUOUS PULSE OX AND CPAP DURING THE NIGHT HRS. O2 SAT'S>94%. PUREWICK DRAINING YELLOW COLOR URINE. GOOD OUTPUT. AT HS PRN TYLENOL ADMINISTERED FOR RIGHT SHOULDER PAIN, PT DID NOT RATE. BED AT THE LOWEST POSITION, CALL LIGHT W/I REACH. PT IS A/O X3-4, ABLE TO MAKE HIS NEEDS KNOWN AND COOPERATIVE WITH CARE.
[2025-06-23 04:45] VITALS: BP 163/81
[2025-06-23 04:58] LABS: BASOPHILS ABSOLUTE AUTO 0.05 K/mm3 (0.00-0.23); BASOPHILS PERCENT AUTO 1 % (0-2); EOSINOPHILS ABSOLUTE AUTO 0.22 K/mm3 (0.00-0.68); EOSINOPHILS PERCENT AUTO 3 % (0-6); Hematocrit 34.5 % (37.0-53.0); Hemoglobin 11.8 g/dL (13.5-17.5); IMMATURE GRAN ABSOLUTE AUTO 0.03 K/mm3 (0.00-0.10); IMMATURE GRAN PERCENT AUTO 0 % (0-1); LYMPHOCYTES ABSOLUTE AUTO 1.61 K/mm3 (0.84-5.20); LYMPHOCYTES PERCENT AUTO 18 % (21-46); MONOCYTES ABSOLUTE AUTO 1.31 K/mm3 (0.16-1.47); MONOCYTES PERCENT AUTO 15 % (4-13); Mean Corpuscular HGB Conc 34.2 g/dL (31.5-36.5); Mean Corpuscular Volume 94 fL (80-100); NEUTROPHILS ABSOLUTE AUTO 5.68 K/mm3 (1.96-9.15); NEUTROPHILS PERCENT AUTO 64 % (41-73); NRBC ABSOLUTE 0.00 K/mm3 (0.00-0.02); NRBC Auto 0.0 /100 WBC (0.0-0.2); Platelet Count 164 K/mm3 (150-400); RDW Coefficient Variation 12.8 % (11.7-14.2); RDW Standard Deviation 44.6 fL (35.1-46.3)
[2025-06-23 05:34] LABS: Alanine Aminotransfer (ALT/SGP 28.0 U/L (12-78); Albumin, Blood 2.2 g/dL (3.4-5.0); Albumin/Globulin Ratio 0.6 (0.8-1.8); Anion Gap 7.0 mmol/L (3-11); Aspartate Aminotrans (AST/SGOT 35.0 U/L (12-37); Bilirubin, Total 0.7 mg/dL (0.1-1.0); Blood Urea Nitrogen 14.0 mg/dL (8-24); CO2, Blood 29.0 mmol/L (21-32); Calcium, Blood 7.9 mg/dL (8.5-10.1); Chloride, Blood 105.0 mmol/L (98-108); Creatinine, Blood 0.67 mg/dL (0.60-1.20); Globulin, Blood 3.9 g/dL (2.2-4.0); Glucose, Blood 97.0 mg/dL (70-99); Potassium, Blood 3.6 mmol/L (3.5-5.5); Sodium, Blood 137.0 mmol/L (136-145); Total Protein, Blood 6.1 g/dL (6.4-8.2)
[2025-06-23 07:42] VITALS: BP 163/77
[2025-06-23 15:37] VITALS: BP 125/63
--- NOTE | 2025-06-23 17:13 | NUR ---
SHIFT SUMMARY NO ACUTE CHANGES, A/Ox4, ABLE TO MAKE NEEDS KNOWN AND USES CALL SYSTEM APPROPRIATELY. FAMILY AT BEDSIDE T/O SHIFT. WOUND CARE COMPLETED PER WOUND CLINIC INSTRUCTION/ORDERS - PT TOLERATED WELL. HEADACHE AND R SHOULDER PAIN TREATED PER EMAR. POSSIBLE DC TOMORROW - AWAITING BLOOD CULTURES. PT CURRENTLY SLEEPING IN BED WITH CALL LIGHT WITHIN REACH AND BED IN LOWEST POSITION. IV SALINE LOCKED. PUREWICK CONNECTED TO SUCTION - DUE TO BE CHANGED ON NOC SHIFT.
[2025-06-23 20:24] VITALS: BP 140/69
--- NOTE | 2025-06-24 03:42 | NUR ---
SHIFT SUMMARY NO ACUTE EVENTS DURING THIS SHIFT. AT HS MULTIPLE FAMILY MEMBERS BY THE BEDSIDE. GRANDSON SPENDING THE NIGHT WITH THE PT BY THE BEDSIDE. PT USING CPAP AT NIGHT, CONTINUOUS PULSE OX O2 SAT'S MID 90'S. AT HS PRN TYLENOL ADMINISTERED FOR C/O RIGHT SHOULDER PAIN/CHRONIC. PT REPORTS EFFECTIVE. PT RESTING WELL T/O THE NIGHT. PUREWICK DRAINING YELLOW COLOR URINE. PLAN IS TO D/C HOME WHEN BLOOD CULTURES NEGATIVE X3, PER PROVIDER'S NOTES. BED AT THE LOWEST POSITION, CALL LIGHT W/I REACH. PT IS A/O X3-4, PLEASANT AND COOPERATIVE WITH CARE. PT IS ABLE TO MAKE HIS NEEDS KNOWN.
[2025-06-24 04:27] VITALS: BP 150/81
[2025-06-24 05:05] LABS: BASOPHILS ABSOLUTE AUTO 0.04 K/mm3 (0.00-0.23); BASOPHILS PERCENT AUTO 0 % (0-2); EOSINOPHILS ABSOLUTE AUTO 0.27 K/mm3 (0.00-0.68); EOSINOPHILS PERCENT AUTO 3 % (0-6); Hematocrit 35.7 % (37.0-53.0); Hemoglobin 11.9 g/dL (13.5-17.5); IMMATURE GRAN ABSOLUTE AUTO 0.07 K/mm3 (0.00-0.10); IMMATURE GRAN PERCENT AUTO 1 % (0-1); LYMPHOCYTES ABSOLUTE AUTO 1.77 K/mm3 (0.84-5.20); LYMPHOCYTES PERCENT AUTO 17 % (21-46); MONOCYTES ABSOLUTE AUTO 1.25 K/mm3 (0.16-1.47); MONOCYTES PERCENT AUTO 12 % (4-13); Mean Corpuscular HGB Conc 33.3 g/dL (31.5-36.5); Mean Corpuscular Volume 95 fL (80-100); NEUTROPHILS ABSOLUTE AUTO 6.89 K/mm3 (1.96-9.15); NEUTROPHILS PERCENT AUTO 67 % (41-73); NRBC ABSOLUTE 0.00 K/mm3 (0.00-0.02); NRBC Auto 0.0 /100 WBC (0.0-0.2); Platelet Count 183 K/mm3 (150-400); RDW Coefficient Variation 13.1 % (11.7-14.2); RDW Standard Deviation 45.6 fL (35.1-46.3)
[2025-06-24 05:41] LABS: Alanine Aminotransfer (ALT/SGP 27.0 U/L (12-78); Albumin, Blood 2.2 g/dL (3.4-5.0); Albumin/Globulin Ratio 0.5 (0.8-1.8); Anion Gap 7.0 mmol/L (3-11); Aspartate Aminotrans (AST/SGOT 36.0 U/L (12-37); Bilirubin, Total 0.8 mg/dL (0.1-1.0); Blood Urea Nitrogen 14.0 mg/dL (8-24); CO2, Blood 29.0 mmol/L (21-32); Calcium, Blood 8.2 mg/dL (8.5-10.1); Chloride, Blood 103.0 mmol/L (98-108); Creatinine, Blood 0.63 mg/dL (0.60-1.20); Globulin, Blood 4.2 g/dL (2.2-4.0); Glucose, Blood 103.0 mg/dL (70-99); Potassium, Blood 3.7 mmol/L (3.5-5.5); Sodium, Blood 135.0 mmol/L (136-145); Total Protein, Blood 6.4 g/dL (6.4-8.2)
--- NOTE | 2025-06-24 07:50 | NUR ---
ASSUMPTION OF CARE: THIS RN ASSUMED CARE OF PATIENT. ASLEEP DURING SHIFT CHANGE REPORT. LYING IN BED c HOB ELEVATED. BREATHING EVEN AND UNLABORED. MAINTAINING SPO2 >92% c CPAP PER CONTINUOUS PULSE OX. HILARIO ASLEEP @ BEDSIDE. BED IN LOWEST POSITION. CALL LIGHT WITHIN REACH. ACUTE NEEDS MET.
[2025-06-24 08:03] VITALS: BP 149/77
[2025-06-24] MEDS ORDERED: CefTRIAXone Sodium 2,000 MG in NS 100 ML IV STA (11:54)
[2025-06-24] MEDS ORDERED: TAMS.4ER PO (13:15)
[2025-06-24] MEDS ORDERED: VISBIOME 112.51 EACH PO (13:15)
[2025-06-24] MEDS ORDERED: CEFTRIAXONE2 G1 IV (13:18)
--- NOTE | 2025-06-24 13:40 | NUR ---
PATIENT'S FAMILY CALLED REQUESTING WARM BLANKET AND TEMPERATURE CHECK PATIENT WAS HAVING C/O SHIVERS AND FEELING COLD. TEMP 101. FAMILY REQUESTING WARM BLANKET. EDUCATION PROVIDED REGARDING COOLING BODY DOWN. APAP ADMINISTERED ONE HOUR BEFORE ONSET OF FEVER. DR. NELSON NOTIFIED; WILL HOLD DISCHARGE AND HE WILL BE UP TO SEE PATIENT SHORTLY. CHARGE, ACC AND FINANCIAL INVESTIGATOR NOTIFIED OF CANCELED DC.
--- NOTE | 2025-06-24 14:50 | NUR ---
RECHECK OF PT TEMP YIELDED 99.6. PULSE OX READING 89-91% ON RA AND HR BETWEEN 64 AND 107. HEART SOUNDS IRREGULAR; DIFFERENT FROM REGULAR NOTED ON AUSCULTATION THIS MORNING. CALL TO DR NELSON: ORDER FOR TELEMETRY AND CXR. TELE SINUS TACH @ 107.
[2025-06-24 16:11] VITALS: BP 130/63
--- NOTE | 2025-06-24 16:29 | NUR ---
DR ASHTON TO BEDSIDE.
[2025-06-24 18:37] LABS: Influenza A/2009-H1 Not Detected (NOT DETECT); SARS-Cov-2 (COVID-19), BioFire Not Detected (NOT DETECT)
[2025-06-24 19:06] VITALS: BP 118/62
--- NOTE | 2025-06-24 20:02 | NUR ---
END OF SHIFT SUMMARY: A&Ox4. PLEASANT AND COOPERATIVE WITH CARE. CALLS APPROPRIATELY AND IS ABLE TO ADVOCATE NEEDS EFFECTIVELY. INCONTINENT OF BLADDER; PUREWICK IN PLACE PER PT TO PRESERVE DIGNITY SECONDARY TO URINARY INCONTINENCE. LBM YESTERDAY. UNABLE TO AMBULATE SECONDARY TO WEAKNESS TODAY. WOUND CARE COMPLETED. FAMILY @ BEDSIDE ALL DAY. MEDS WHOLE c FLUIDS. C/O SEVERE RIGHT SHOULDER PAIN; LIDO PATCH AND APAP PROVIDED. DC CANCELED D/T FEVER. CXR AND RESP PANEL WNL. TELE REINSTATED D/T IRREGULAR HR AND FEVER AND BLOOD CULTURES REDRAWN. BED IN LOWEST POSITION, CALL LIGHT WITHIN REACH, ALL NEEDS MET. REPORT TO ONCOMING NURSE.
[2025-06-25] VITALS: BP 120/66
[2025-06-25 04:00] VITALS: BP 143/65
[2025-06-25 04:59] LABS: BASOPHILS ABSOLUTE AUTO 0.03 K/mm3 (0.00-0.23); BASOPHILS PERCENT AUTO 0 % (0-2); EOSINOPHILS ABSOLUTE AUTO 0.25 K/mm3 (0.00-0.68); EOSINOPHILS PERCENT AUTO 3 % (0-6); Hematocrit 34.1 % (37.0-53.0); Hemoglobin 11.2 g/dL (13.5-17.5); IMMATURE GRAN ABSOLUTE AUTO 0.10 K/mm3 (0.00-0.10); IMMATURE GRAN PERCENT AUTO 1 % (0-1); LYMPHOCYTES ABSOLUTE AUTO 1.32 K/mm3 (0.84-5.20); LYMPHOCYTES PERCENT AUTO 17 % (21-46); MONOCYTES ABSOLUTE AUTO 0.92 K/mm3 (0.16-1.47); MONOCYTES PERCENT AUTO 12 % (4-13); Mean Corpuscular HGB Conc 32.8 g/dL (31.5-36.5); Mean Corpuscular Volume 95 fL (80-100); NEUTROPHILS ABSOLUTE AUTO 5.08 K/mm3 (1.96-9.15); NEUTROPHILS PERCENT AUTO 66 % (41-73); NRBC ABSOLUTE 0.00 K/mm3 (0.00-0.02); NRBC Auto 0.0 /100 WBC (0.0-0.2); Platelet Count 212 K/mm3 (150-400); RDW Coefficient Variation 12.9 % (11.7-14.2); RDW Standard Deviation 45.6 fL (35.1-46.3)
[2025-06-25 05:24] LABS: Alanine Aminotransfer (ALT/SGP 53.0 U/L (12-78); Albumin, Blood 2.1 g/dL (3.4-5.0); Albumin/Globulin Ratio 0.5 (0.8-1.8); Anion Gap 6.0 mmol/L (3-11); Aspartate Aminotrans (AST/SGOT 70.0 U/L (12-37); Bilirubin, Total 0.7 mg/dL (0.1-1.0); Blood Urea Nitrogen 16.0 mg/dL (8-24); CO2, Blood 30.0 mmol/L (21-32); Calcium, Blood 8.0 mg/dL (8.5-10.1); Chloride, Blood 104.0 mmol/L (98-108); Creatinine, Blood 0.7 mg/dL (0.60-1.20); Globulin, Blood 4.1 g/dL (2.2-4.0); Glucose, Blood 101.0 mg/dL (70-99); Potassium, Blood 3.8 mmol/L (3.5-5.5); Sodium, Blood 136.0 mmol/L (136-145); Total Protein, Blood 6.2 g/dL (6.4-8.2)
--- NOTE | 2025-06-25 06:07 | NUR ---
SHIFT SUMMARY PT SLEPT INTERMITTENTLY DURING THE NIGHT. MANY FAMILY MEMBERS VISITING DURING THE EVENING AND GRANDSON SPENT THE NIGHT AT BEDSIDE. PT TOLERATED CPAP UNTIL APPROX 2AM THEN ASKED TO HAVE IT REMOVED. AT 0320, PT DESATTED TO MID 80'S ON ROOM AIR AND 2L NC APPLIED. PT WITH FEVER OF 100.9 THIS NONPROFIT FUNDRAISER-TYLENOL GIVEN PER EMAR. PT REPOSITIONED Q2 DURING THE NIGHT. DRESSINGS INTACT TO RLL. PT SR WITH BBB PER TELE.
[2025-06-25 07:40] VITALS: BP 152/61
--- NOTE | 2025-06-25 08:05 | NUR ---
ASSUMPTION OF CARE: THIS RN ASSUMED CARE OF PATIENT FOR SECOND DAY. ASLEEP DURING SHIFT CHANGE REPORT; JEF RICH, AT BEDSIDE. LYING IN BED c HOB ELEVATED. BREATHING EVEN AND UNLABORED c 2LPM/NC; CPAP NOT ON. MAINTAINING SPO2 OF 94% PER CONTINUOUS PULSE OX. PUREWICK IN PLACE FOR PATIENT DIGNITY SECONDARY TO URINARY INCONTINENCE. MOST RECENT TELE STRIP IN INTERPRETED SINUS cBBB& PAC @ 72. WILL GO FOR CT OF RLE SHORTLY. BED IN LOWEST POSITION. CALL LIGHT WITHIN REACH. ACUTE NEEDS MET.
[2025-06-25] MEDS ORDERED: CefTRIAXone Sodium 2,000 MG in NS 100 ML IV SCH (09:00)
--- NOTE | 2025-06-25 11:06 | NUR ---
CALL FROM PharmMD: PT HAD 12-BEAT RUN OF SVT. PT WITHOUT C/O NAUSEA, VOMITING OR CHEST PAIN. DAUGHTER AND HAD JUST WALKED IN, NO OTHER CHANGES. CALL TO DR ASHTON FOR ADD-ON ORDER FOR MAG TO BE ADDED TO THIS MORNING'S LABS.
[2025-06-25 15:35] VITALS: BP 126/68
--- NOTE | 2025-06-25 19:08 | NUR ---
END OF SHIFT SUMMARY: A&Ox4. PLEASANT AND COOPERATIVE WITH CARE. CALLS APPROPRIATELY AND IS ABLE TO ADVOCATE NEEDS EFFECTIVELY. CONTINENT OF BOWEL AND BLADDER; LBM 06/21. 2PA c FWW & GB. MEDS WHOLE c FLUIDS. NO C/O PAIN OR DISCOMFORT OUTSIDE OF NORMAL ACHES AND PAINS. SIGNIFICANTLY LESS SHOULDER PAIN TODAY. TELE SINUS c BBB & PACs. HAD AN ASYMPTOMATIC 12-BEAT RUN OF V-TACH AROUND 1100 TODAY; LABS WNL. CT RLE AND XR RT SHOULDER WNL. WOUND CARE PROVIDED; RLE LOOKS MUCH IMPROVED FROM YESTERDAY. BED IN LOWEST POSITION, CALL LIGHT WITHIN REACH, ALL NEEDS MET. REPORT TO ONCOMING NURSE.
[2025-06-25 20:58] VITALS: BP 132/72
[2025-06-25 23:31] VITALS: BP 149/79
[2025-06-26 04:11] VITALS: BP 145/83
[2025-06-26 04:57] LABS: BASOPHILS ABSOLUTE AUTO 0.04 K/mm3 (0.00-0.23); BASOPHILS PERCENT AUTO 1 % (0-2); EOSINOPHILS ABSOLUTE AUTO 0.24 K/mm3 (0.00-0.68); EOSINOPHILS PERCENT AUTO 3 % (0-6); Hematocrit 33.6 % (37.0-53.0); Hemoglobin 11.1 g/dL (13.5-17.5); IMMATURE GRAN ABSOLUTE AUTO 0.06 K/mm3 (0.00-0.10); IMMATURE GRAN PERCENT AUTO 1 % (0-1); LYMPHOCYTES ABSOLUTE AUTO 1.58 K/mm3 (0.84-5.20); LYMPHOCYTES PERCENT AUTO 20 % (21-46); MONOCYTES ABSOLUTE AUTO 0.72 K/mm3 (0.16-1.47); MONOCYTES PERCENT AUTO 9 % (4-13); Mean Corpuscular HGB Conc 33.0 g/dL (31.5-36.5); Mean Corpuscular Volume 95 fL (80-100); NEUTROPHILS ABSOLUTE AUTO 5.12 K/mm3 (1.96-9.15); NEUTROPHILS PERCENT AUTO 66 % (41-73); NRBC ABSOLUTE 0.00 K/mm3 (0.00-0.02); NRBC Auto 0.0 /100 WBC (0.0-0.2); Platelet Count 235 K/mm3 (150-400); RDW Coefficient Variation 12.8 % (11.7-14.2); RDW Standard Deviation 44.5 fL (35.1-46.3)
[2025-06-26 05:18] LABS: Anion Gap 5.0 mmol/L (3-11); Blood Urea Nitrogen 14.0 mg/dL (8-24); CO2, Blood 32.0 mmol/L (21-32); Calcium, Blood 8.2 mg/dL (8.5-10.1); Chloride, Blood 103.0 mmol/L (98-108); Creatinine, Blood 0.67 mg/dL (0.60-1.20); Glucose, Blood 98.0 mg/dL (70-99); Potassium, Blood 4.0 mmol/L (3.5-5.5); Sodium, Blood 136.0 mmol/L (136-145)
--- NOTE | 2025-06-26 06:28 | NUR ---
Shift Summary Family in room at the start of shift and they are assisting in care. Grandson spent the night. Pt had a small BM and a bedbath at the start of the shift. Purewick in place draining incontinent voids. Pt R shoulder is very painful with movement. Repositioned w/ pillows t/o the night. At one point pt c/o 10/10 leg pain, gave PRN tylenol and elevated his RLE on 3 pillows. One hour later pt was asleep. He slept t/o the night with his CPAP mask on. During the transfer to the [facility] pt was very weak and it was a difficult transfer. Pt is AOx4.
[2025-06-26 07:33] VITALS: BP 149/87
[2025-06-26 11:34] VITALS: BP 140/70
[2025-06-26 15:25] VITALS: BP 127/68
--- NOTE | 2025-06-26 16:50 | NUR ---
SHIFT SUMMMARY NO ACUTE CHANGES, A/Ox4, NO FEVER/CHILLS THIS SHIFT. TYLENOL DC'D TO NOT MASK FEVER AND TRAMADOL STARTED - EFFECTIVE IN MANAGING PT PAIN. WOUND CARE COMPLETED AND PT TOLERATED WELL. GOOD APPETITE. ENCOURAGING PT TO GET UP TO CHAIR FOR ALEX - PT NOT KEEN ON PHYSICAL THERAPY OR GETTING OOB UNLESS ITS TO USE BSC. PT DID HAVE LARGE BM TODAY. FAMILY AT BEDSIDE T/O SHIFT. PT CURRENTLY RESTING IN BED WITH BED IN LOWEST POSITION AND CALL LIGHT WITHIN REACH.
[2025-06-26 20:26] VITALS: BP 149/78
--- NOTE | 2025-06-26 23:50 | NUR ---
PT A&O, SITTING UP IN RECLINER AT BS DURING SHIFT REPORT. PT'S AND DAUGHTER AT BS VISITING. PT HAVING MULTIPLE VISITORS THIS EVENING WITH FAMILY STAYING IN RM TO ASSIST PT DURING THE NIGHT. PT UP TO BSC FOR BM AFTER DINNER; 2P STAND/PIVOT USING FWW. SR ON TELE W/PVC'S PER MX. PT REQUESTING ULTRAM FOR PAIN TO RLE AND R SHOULDER AT HS. PT REPORTING IT VERY EFFECTIVE WHEN TAKEN EARLIER IN THE DAY. POSSIBLE D/C TO HOME WITH H/H ON SATURDAY, PER REPORT. DENIED FURTHER NEEDS. CALL LT IN REACH. FAMILY IN RM. PT RESTING QUIETLY ON CPAP. CONT BIOX IN PLACE.
[2025-06-27 00:15] VITALS: BP 159/87
[2025-06-27 04:29] VITALS: BP 150/89
--- NOTE | 2025-06-27 04:51 | NUR ---
SHIFT SUMMARY: PT IS AOXY AND COOPERATIVE WITH CARE. PT WEARS A CPAP AT NIGHT AND IS COMPIANT WITH WEARING IT THIS SHIFT. PT REPOSITIONED Q2 AND RLE IS ELEVATED. PLAN IS FOR PT TO DC ON 06/28 WITH HOME HEALTH. DAUGHTER IS AT BEDSIDE WITH PT.
[2025-06-27 07:27] VITALS: BP 148/73
[2025-06-27 16:16] VITALS: BP 137/69
--- NOTE | 2025-06-27 16:50 | NUR ---
SHIFT SUMMARY NO ACUTE CHANGES, A/Ox4, ABLE TO MAKE NEEDS KNOWN, USES CALL LIGHT APPROPRIATELY. PT PAIN MUCH IMPROVED WITH ROUTINE TRAMADOL ADMINISTRATION. WOUND CARE COMPLETED AND PT TOLERATED WELL. VITALS STABLE, NO FEVER. GOOD APPETITE. BM TODAY. WICKING SYSTEM IN PLACE - DUE TO BE CHANGED ON NOC SHIFT. UP IN CHAIR FOR LUNCH, PLAN TO GET PT OOB FOR DINNER. PT CURRENTLY RESTING IN BED WITH BED IN LOWEST POSITION AND CALL LIGHT WITHIN REACH. DAUGHTER AND SPOUSE AT BEDSIDE.
[2025-06-27 19:30] VITALS: BP 129/62
--- NOTE | 2025-06-27 19:51 | NUR ---
ASSUMPTION OF CARE: THIS RN ASSUMED CARE OF PATIENT. AWAKE DURING SHIFT CHANGE REPORT. SITTING UP IN CHAIR. BREATHING EVEN AND UNLABORED c ROOM AIR. PUREWICK PATENT AND DRAINING YELLOW URINE TO 80mmhg SUCTION. FAMILY @ BEDSIDE. BED IN LOWEST POSITION. CALL LIGHT WITHIN REACH. ACUTE NEEDS MET.
[2025-06-28 04:24] VITALS: BP 138/71
[2025-06-28 05:08] LABS: Hematocrit 34.4 % (37.0-53.0); Hemoglobin 11.3 g/dL (13.5-17.5); Mean Corpuscular HGB Conc 32.8 g/dL (31.5-36.5); Mean Corpuscular Volume 95 fL (80-100); NRBC ABSOLUTE 0.00 K/mm3 (0.00-0.02); NRBC Auto 0.0 /100 WBC (0.0-0.2); Platelet Count 279 K/mm3 (150-400); RDW Coefficient Variation 12.7 % (11.7-14.2); RDW Standard Deviation 45.3 fL (35.1-46.3)
[2025-06-28 05:27] LABS: Anion Gap 7.0 mmol/L (3-11); Blood Urea Nitrogen 12.0 mg/dL (8-24); CO2, Blood 31.0 mmol/L (21-32); Calcium, Blood 8.4 mg/dL (8.5-10.1); Chloride, Blood 101.0 mmol/L (98-108); Creatinine, Blood 0.65 mg/dL (0.60-1.20); Glucose, Blood 96.0 mg/dL (70-99); Potassium, Blood 4.1 mmol/L (3.5-5.5); Sodium, Blood 135.0 mmol/L (136-145)
--- NOTE | 2025-06-28 05:37 | NUR ---
END OF SHIFT SUMMARY: A&Ox4. PLEASANT AND COOPERATIVE WITH CARE. CALLS APPROPRIATELY AND IS ABLE TO ADVOCATE NEEDS EFFECTIVELY. CONTINENT OF BOWEL; LBM 06/27/25. PUREWICK IN PLACE FOR URINARY INCONTINENCE TO PROMOTE SKIN INTEGRITY AND PT DIGNITY. AMBULATES 1-2PA c FWW. MEDS WHOLE c FLUIDS. PAIN CONTROLLED c TRAMADOL. MAINTAINING SPO2 >92% c RA PER CONTINUOUS PULSE OX. SLEPT ALL NIGHT. NO ADVERSE EVENTS NOTED THROUGHOUT NIGHT. GRANDDAUGHTER @ BEDSIDE. ANTICIPATE DC HOME TODAY. BED IN LOWEST POSITION, CALL LIGHT WITHIN REACH, ALL NEEDS MET. REPORT TO ONCOMING NURSE.
[2025-06-28 07:38] VITALS: BP 153/100
[2025-06-28] MEDS ORDERED: TRAM50 PO (11:23)
--- NOTE | 2025-06-28 13:11 | NUR ---
DISCHARGE SUMMARY PT DISCHARGED HOME WITH HH. WOUND CARE COMPLETED PRIOR TO DC. IV REMOVED AND SITE APPEARS WNL. HARD SCRIPT PROVIDED FOR NEW RX. PUREWICK REMOVED. FAMILY ASSISTED WITH GETTING PT DRESSED AND TO WC. DISCHARGE INSTRUCTIONS REVIEWED WITH PT, PT SPOUSE, AND PT GRANDDAUGHTER. MARKET RISK SPECIALIST WHEELED PT DOWN TO CAR, PT ABLE TO STAND AND AMBULATE TO VEHICLE WITH FAMILY ASSISTANCE.
== END 2025-06-28 12:42 | disposition home health service (06) | DRG 871 ==
LOC: ER 11:46 → MEDS 11:47 → ENPENDDIS 06-24 12:47 → DELPENDDIS 06-24 12:47 → MEDS 06-24 15:00
PROVIDERS: Hospitalist; Student in an Organized Health Care Education/Training Program; ADMIT Internal Medicine
PROC: 3E03329 Introduction of Other Anti-infective into Peripheral Vein, Percutaneous Approach (ICD-10-PCS; principal; 2025-06-18)
PROC: 5A09357 Assistance with Respiratory Ventilation, Less than 24 Consecutive Hours, Continuous Positive Airway Pressure (ICD-10-PCS; 2025-06-18)
DX: A40.8 Other streptococcal sepsis (principal); G92.8 Other toxic encephalopathy; L03.115 Cellulitis of right lower limb; E87.1 Hypo-osmolality and hyponatremia; L97.219 Non-pressure chronic ulcer of right calf with unspecified severity; L97.419 Non-pressure chronic ulcer of right heel and midfoot with unspecified severity; Z66 Do not resuscitate; M19.011 Primary osteoarthritis, right shoulder; I25.10 Atherosclerotic heart disease of native coronary artery without angina pectoris; I10 Essential (primary) hypertension; I87.2 Venous insufficiency (chronic) (peripheral); E78.5 Hyperlipidemia, unspecified; R09.02 Hypoxemia; I35.1 Nonrheumatic aortic (valve) insufficiency; E87.6 Hypokalemia; Z96.641 Presence of right artificial hip joint; Z79.82 Long term (current) use of aspirin; I25.2 Old myocardial infarction; Z86.73 Personal history of transient ischemic attack (TIA), and cerebral infarction without residual deficits
CPT/HCPCS: 0202U; 36415; 71045; 71046; 73030; 73701; 80048; 80053; 81001; 83605; 83735; 84484; 85025; 85027; 86140; 87040; 87147; 87637; 93005; 93010; 93306; 94760; 94762; 96365; 96372; 96376; 97162; 97165; 97530; 97535; 99285-25; A9270; G0378; J0690; J0696; J1650; J2405; J7030; J7050; Q9967

== ENCOUNTER 2025-07-01 02:25 | Day surgery (SDC) | payer OTHER ==
[~2025-07-01 02:25] MED LIST changes: +AMLO10 PO; +CEFTRIAXONE2 G1 IV; +Diclofenac Sodi50 MG PO; +HYDCHL25 PO; +LOSA25 PO; +TAMS.4ER PO; +TRAM50 PO; +VISBIOME 112.51 EACH PO
[2025-07-01] MEDS ORDERED: Lidocaine HCl 4% Cream 5 GM ONE (13:19)
== END 2025-07-01 23:00 | disposition home or self-care (01) ==
LOC: WOUND 02:25
DX: E11.622 Type 2 diabetes mellitus with other skin ulcer (principal); L97.812 Non-pressure chronic ulcer of other part of right lower leg with fat layer exposed; E11.621 Type 2 diabetes mellitus with foot ulcer; L97.411 Non-pressure chronic ulcer of right heel and midfoot limited to breakdown of skin; L97.511 Non-pressure chronic ulcer of other part of right foot limited to breakdown of skin; E11.51 Type 2 diabetes mellitus with diabetic peripheral angiopathy without gangrene; I87.2 Venous insufficiency (chronic) (peripheral)
CPT/HCPCS: A6213; A9270

== ENCOUNTER 2025-07-08 03:21 | Day surgery (SDC) | payer OTHER ==
[2025-07-08] MEDS ORDERED: Lidocaine HCl 4% Cream 5 GM ONE (10:23)
== END 2025-07-08 23:17 | disposition home or self-care (01) ==
LOC: WOUND 03:21
DX: E11.621 Type 2 diabetes mellitus with foot ulcer (principal); L97.412 Non-pressure chronic ulcer of right heel and midfoot with fat layer exposed; I87.2 Venous insufficiency (chronic) (peripheral); E11.51 Type 2 diabetes mellitus with diabetic peripheral angiopathy without gangrene
CPT/HCPCS: A9270; G0463

== ENCOUNTER 2025-07-15 00:43 | Day surgery (SDC) | payer OTHER ==
[2025-07-15] MEDS ORDERED: Lidocaine HCl 4% Cream 5 GM ONE (11:11)
== END 2025-07-15 23:00 | disposition home or self-care (01) ==
LOC: WOUND 00:43
DX: E11.622 Type 2 diabetes mellitus with other skin ulcer (principal); L97.812 Non-pressure chronic ulcer of other part of right lower leg with fat layer exposed; E11.51 Type 2 diabetes mellitus with diabetic peripheral angiopathy without gangrene; I87.2 Venous insufficiency (chronic) (peripheral)
CPT/HCPCS: A9270; G0463